=== PATIENT | male | born 1940 | race Caucasian/White ===

== ENCOUNTER 2020-06-06 11:17 | Outpatient (CLI) | payer MEDICARE ==
--- NOTE | 2020-06-11 08:52 | Mammography Report ---
MALE BILATERAL DIGITAL DIAGNOSTIC MAMMOGRAM 3D/2D: 06/06/2020 CLINICAL: Male patient. Palpable right breast lump. No prior exams were available for comparison. There is asymmetric gynecomastia in the right breast that correlates with palpable abnormality and re ported pain. No significant masses, calcifications, or other findings are seen in either breast. IMPRESSION: INCOMPLETE: NEEDS ADDITIONAL IMAGING EVALUATION Asymmetric gynecomastia in the right breast. Ultrasound is recommended for full evaluation of this a silas to exclude underlying malignancy. This was performed immediately following this exam. This exam was interpreted at Station ID: [id number]. NOTE: For mammograms, a report in lay terms will be sent to the patient. Approximately 15% of breast malignancies will not be visualized mammographically. In the management of a palpable breast mass, a negative mammogram must not discourage biopsy of a clinically suspicious lesion. Electronically Signed By: Maren chirstianson/:06/06/2020 12:32:36 ACR BI-RADS Category 0: Incomplete 3340F PARENCHYMAL PATTERN: (F) - The breast(s) demonstrate(s) diffuse fatty replacement. BI-RADS CATEGORY: (0) - 0 Ultrasound [id number] Immediate follow-up LATERALITY: (B)
--- NOTE | 2020-06-11 08:52 | Ultrasound Report ---
LIMITED ULTRASOUND OF RIGHT BREAST: 06/06/2020 CLINICAL: Palpable right breast lump. Comparison is made to exam dated: 06/06/2020 mammogram - [facility]. Ultrasound of the right breast 8-10 o'clock, and retroareolar regions was performed. There is gynecomastia in the right breast that correlates with palpable abnormality and reported pain . No other suspicious findings. IMPRESSION: BENIGN Right breast asymmetric gynecomastia only corresponds to the area of concern. There is no sonographic evidence of malignancy. Findings and recommendations were conveyed to the patient at time of exam. This exam was interpreted at Station ID: [id number]. Electronically Signed By: Maren christianson/:06/06/2020 12:38:40 Ultrasound BI-RADS: 2 Benign BI-RADS CATEGORY: (2) - 2 Unspecified - other recall n/a LATERALITY: (B)
== END 2020-06-06 11:18 | disposition home or self-care (01) ==
LOC: EDSEX → DI 11:17
PROVIDERS: ATTEND Nurse Practitioner Family
DX: N62 Hypertrophy of breast (principal)

== ENCOUNTER 2021-05-29 09:57 | Outpatient (CLI) | payer MEDICARE ==
--- NOTE | 2021-05-29 10:46 | Ultrasound Report ---
PROCEDURE: Abdomen Limited INDICATIONS: ELEVATED LIVER ENZYMES TECHNIQUE: Real-time focused scanning was performed of the abdomen, with image documentation. COMPARISON: None available. FINDINGS: AORTA: The visualized abdominal aorta is normal. IVC: The visualized IVC is normal. LIVER: Increased echogenicity, compatible hepatic steatosis. Enlarged, measuring 25.2 cm in length. The portal vein is patent. PANCREAS: The visualized portions of the pancreas are normal. Gallbladder and biliary tree: No gallbladder wall thickening, pericholecystic fluid, or shadowing g allstones. The common bile duct measures 4.1 mm. RIGHT KIDNEY: Normal in appearance with no hydronephrosis. Measuring 12.6 cm in length. The renal c ortex thickness measures 1.1 cm. No ascites. IMPRESSION: 1.No acute right upper quadrant sonographic abnormality. Reviewed by: Juan Healy MD on 05/29/2021 10:45 AM [facility] Approved by: Juan Healy MD on 05/29/2021 10:45 AM [facility] Station ID: [id number]
== END 2021-05-29 09:58 | disposition home or self-care (01) ==
LOC: DI 09:57
PROVIDERS: ATTEND Nurse Practitioner Family
DX: R74.8 Abnormal levels of other serum enzymes (principal)

== ENCOUNTER 2023-07-05 13:04 | Outpatient (CLI) | payer MEDICARE ==
--- NOTE | 2023-07-06 07:17 | Ultrasound Report ---
PROCEDURE: Renal (Retroperitoneal) INDICATIONS: CKD TECHNIQUE: Real-time scanning was performed of the retroperitoneal organs, with image documentation. COMPARISON: None. FINDINGS: Kidneys: Kidneys are normal in size. Right kidney measures 11.0 cm long; left kidney measures 11.2 cm long. Right renal cortical thickness is 1.0 cm; left renal cortical thickness is 0.9 cm. No lux d masses, hydronephrosis, or nephrolithiasis. There is a left 1.6 cm renal cyst. Bladder: Pre-void bladder volume is 538.5 mL. Post-void residual is 477.4 mL. Pre-void images demo nstrate no intraluminal masses or stones. On pre-void images, both ureteral jets are noted with colo r Doppler interrogation. (Of note, ureteral jets may not be detectable in up to 25% of cases due to insufficient differences in specific gravity between ureteral and bladder urine). Miscellaneous: No free abdominal fluid. IMPRESSION: 1. Bilateral cortical thinning. 2. No hydronephrosis. 3. Very large post void residual. Reviewed by: Duyen Heck MD on 07/06/2023 7:16 AM PDT Approved by: Duyen Heck MD on 07/06/2023 7:16 AM PDT Station ID: [id number]
== END 2023-07-05 13:05 | disposition home or self-care (01) ==
LOC: DI 13:04
PROVIDERS: ATTEND Registered Nurse
DX: N18.30 Chronic kidney disease, stage 3 unspecified (principal)

== ENCOUNTER 2023-07-05 13:14 | Outpatient (CLI) | payer MEDICARE ==
--- NOTE | 2023-07-06 07:50 | XRAY Report ---
PROCEDURE: Knee 3V RT INDICATIONS: RIGHT KNEE PAIN TECHNIQUE: 3 views of the knee(s) were acquired. COMPARISON: None. FINDINGS: Bones: No fractures or dislocations. No suspicious bony lesions. There is severe medial femorotib ial compartment narrowing, small tricompartmental osteophytes and intercondylar osteophytes. Soft tissues: No knee joint effusion. No suspicious soft tissue calcifications or masses. IMPRESSION: No acute bony abnormality. Moderate to severe right knee osteoarthritis. Reviewed by: Duyen Heck MD on 07/06/2023 7:49 AM PDT Approved by: Duyen Heck MD on 07/06/2023 7:49 AM PDT Station ID: [id number]
== END 2023-07-05 13:15 | disposition home or self-care (01) ==
LOC: DI 13:14
PROVIDERS: ATTEND Registered Nurse
DX: M17.11 Unilateral primary osteoarthritis, right knee (principal); N18.30 Chronic kidney disease, stage 3 unspecified

== ENCOUNTER 2023-11-12 15:42 | Outpatient (CLI) | payer MEDICARE ==
--- NOTE | 2023-11-12 16:49 | XRAY Report ---
PROCEDURE: Chest 2V INDICATIONS: BILATERAL LEG EDEMA TECHNIQUE: 2 views of the chest were acquired. COMPARISON: None. FINDINGS: Surgical changes and devices: None. Lungs and pleura: No pleural effusions or pneumothorax. Mild interstitial opacities and peribronchia l cuffing. Mediastinum: Mediastinal contours appear normal. Heart size is normal. Bones and chest wall: No suspicious bony lesions. Overlying soft tissues appear unremarkable. IMPRESSION: Mild pulmonary edema. Reviewed by: Rasheed Sheikh MD on 11/12/2023 4:48 PM PDT Approved by: Rasheed Sheikh MD on 11/12/2023 4:48 PM PDT Station ID: [id number]
== END 2023-11-12 15:43 | disposition home or self-care (01) ==
LOC: DI 15:42
PROVIDERS: ATTEND Registered Nurse
DX: J81.1 Chronic pulmonary edema (principal)

== ENCOUNTER 2023-12-17 13:22 | Outpatient (CLI) | payer MEDICARE | END 2023-12-17 13:23 | disposition home or self-care (01) | LOC: DI 13:22 | PROVIDERS: ATTEND Registered Nurse | DX: I50.9 Heart failure, unspecified (principal); I08.1 Rheumatic disorders of both mitral and tricuspid valves | CPT/HCPCS: 93307 ==